=== PATIENT | male | born 1960 | race Caucasian/White ===

== ENCOUNTER 2016-12-28 14:00 | Emergency (ER) | payer MEDICARE, BC ==
--- NOTE | 2016-12-28 14:21 | ERNOTE ---
Abdominal HPI - Narrative Date of Service: 12/28/16 - General Chief Complaint: Abdominal Pain Time Seen by Provider: 12/28/16 14:19 Source: patient, family, RN notes reviewed, telephone clerks supervisor Exam Limitations: other - patient is deaf, daughter signs for him - Immun/Allergies/Home Medications Immunizatons: IMMUNIZATION HX Immunizations Up to Date Yes History of Influenza Vaccine No Hx Pneumococcal Vaccination No Allergies/Adverse Reactions: Allergies No Known Allergies Allergy (Verified 12/28/16 14:07) Home Medications: HOME MEDICATIONS Tizanidine HCl [Zanaflex] 4 mg PO HS 07/16/16 [Last Taken Unknown] ALPRAZolam [Xanax] 0.5 mg PO DAILY 12/28/16 [Last Taken Unknown] Tamsulosin HCl [Flomax] 0.4 mg PO DAILY@1800 12/28/16 [Last Taken Unknown] - History of Present Illness Narrative: 56 y/o male to ED by private vehicle with family for left lower quadrant abdominal pain that began a month ago. He only has pain when he walks. He denies any other symptoms. He has not been taking anything for pain. Prior Abdominal Problems: Present: none Prior Treatment: Absent: recently seen Review of Systems - Review of Systems Constitutional: Absent: fever, fatigue, malaise EYE: Present: no symptoms reported ENT: Present: no symptoms reported Respiratory: Absent: shortness of breath, cough Cardiology: Absent: chest pain, syncope Gastrointestinal/Abdominal: Present: abdominal pain. Absent: nausea, vomiting, diarrhea, constipation, eating less, drinking less Genitourinary: Absent: frequency, dysuria, hematuria Musculoskeletal: Absent: back pain, joint pain Skin: Absent: rash, lesions Neurological: Absent: headache, dizziness/light-headedness Endocrine: Present: no symptoms reported Hematologic/Lymphatic: Present: no symptoms reported Psych: Present: no symptoms reported - Patient's Past Medical History Patient History - Medical: Anxiety, Depression, GERD, Migraines Patient History - Cardiac/Respiratory: No pertinent hx Patient History - Cancer: No Hx of Cancer Patient History - Surgical Procedures: No surgical history Patient History - Other: None - Family History Mother Family History - Medical: Alzheimer's Disease Family History - Cardiac/Respiratory: No pertinent hx Father Family History - Medical: Family History - Cardiac/Respiratory: Coronary Heart Disease, Myocardial Infarction - Social History Living Situations: home Abuse History: No History of abuse Psych History: Hx of Anxiety, Hx of Depression, Current tx/ever been on anti- depressants or anti-anxiety meds Alcohol Use: occasionally Drug Use: none - Immunizations Immunizations Up to Date: Yes Hx Pneumococcal Vaccination: No History of Influenza Vaccine: No Physical Exam - Physical Exam General Appearance: Present: wd/wn, alert, no apparent distress Eye Exam: Normal inspection: bilateral Respiratory: Present: no respiratory distress, normal breath sounds, no accessory muscle use, lungs clear Cardiovascular/Chest: Present: regular rate, rhythm, no murmur, normal peripheral pulses Gastrointestinal/Abdominal: Present: normal bowel sounds, nondistended, soft, tenderness - left lower quad. Absent: mass, hernia Back Exam: Present: normal inspection, no CVA tenderness Neurological Exam: Present: alert, oriented, normal mood/affect Skin Exam: Present: normal color, warm/dry ED Progress - Results and Orders Patient's Lab Results:: I have reviewed the patient's lab results. - Vital Signs Patient's Vital Signs:: I have reviewed the patient's vital signs. Vital Signs: Vital Signs 12/28/16 14:01 Temperature 35.9 C L Pulse Rate 87 Respiratory 12 Rate Blood Pressure 150/73 O2 Sat by Pulse 98 Oximetry - X-Ray X-Ray #1 X-Ray: abdomen Interpretation: Reviewed by me X-ray Comments: Nonobstructive bowel gas pattern with moderate to severe fecal retention - Progress/Reassessment Chief Complaint: Abdominal Pain Progress:: Unchanged Departure - Departure Clinical Impression: Constipation Qualifiers: Constipation type: unspecified constipation type Qualified Code(s): K59.00 - Constipation, unspecified Disposition: Home self-care Condition: Stable Instructions: Constipation, Adult, [id number] Additional Instructions: Drink entire bottle of magnesium citrate and use Fleets enema when you get home Referrals: Reagan Paez MD [Primary Care Provider] -
[2016-12-28 14:22] LABS: Hematocrit 45.4 % (42.0-52.0); Hemoglobin 15.6 gm/dL (13.5-18.0); Mean Cell Volume 83.5 fl (78-100); Mean Corpuscular Hemoglobin 28.7 pg (27-31); Mean Corpuscular Hgb Conc 34.4 g/dl (32-36); Mean Platelet Volume 10.6 fl (6.0-9.5); Neutrophil # 4.3 K/mm3 (1.3-6.0); Neutrophil % 67.5 % (42-75.0); Platelet Count 237 K/mm3 (150-450); Red Blood Count 5.44 M/mm3 (4.7-6.0); Red Cell Distribution Width 13.4 % (11.5-14.0); White Blood Count 6.4 K/mm3 (4.0-10.5)
[2016-12-28] MEDS ORDERED: KETOROLAC TROMETHAMINE 60 MG/2 ML VIAL IM ONE ×2 (14:31→14:37)
[2016-12-28 14:34] LABS: ALT 40 U/L (19-67); AST 17 U/L (0-48); Albumin * 4.1 gm/dl (3.4-5.0); Alkaline Phosphatase * 70 U/L (50-170); Anion Gap 12.4 mmol/L (6.8-13.8); BUN/Creatinine Ratio 13.8 (9.0-21.6); Bilirubin, Total 1.2 mg/dL (0.0-1.1); Blood Urea Nitrogen 13 mg/dL (6-23); Ca. Corrected For Albumin 8.8 mg/dL (8.4-10.2); Calcium * 9.2 mg/dL (7.9-10.9); Carbon Dioxide 28.4 mmol/L (24-32.6); Chloride 105 mmol/L (97-106); Glucose * 137 mg/dL (70-110); Potassium 3.8 mmol/L (3.4-4.6); Sodium 142 mmol/L (132-142); Total Protein 7.4 gm/dL (6.2-8.2)
[2016-12-28 14:49] LABS: Urine Appearance Clear; Urine Bacteria None Seen; Urine Bilirubin Negative (NEGATIVE); Urine Blood Negative /ul (NEGATIVE); Urine Color Yellow; Urine Ketone Negative (NEGATIVE); Urine Nitrite Negative (NEGATIVE); Urine Protein Negative (NEGATIVE); Urine RBC None Seen /hpf (0-5); Urine Specific Gravity 1.005 SP.GR. (1.005-1.030); Urine Urobilinogen Normal (NORMAL); Urine WBC 0-5 /hpf (0-5)
--- OUTSIDE RECORDS SUMMARY | 2016-12-28 14:54 | XMS REPORT | Continuity of Care Document ---
:1960 Author Organization [facility] ([facility]) Address [address] [place] [address] Phone [phone] Care Team Providers Name Role Phone Provider, No-Primary Care Primary Care Provider Unavailable Source Comments This disclosure is being made pursuant to the Care Everywhere program, applicable federal and state laws, and may not contain all informaitonavailable regarding this patient.[facility] ([facility]) Active Allergies and Adverse Reactions No Known Allergies Current Medications Prescription Sig. Disp. Refills Start Date End Date Status ALPRAZolam (XANAX) Take 0.25 mg by Active 0.25 mg tablet mouth 2 times daily as needed. Indications: ANXIETY tamsulosin 0.4 mg Take 1 capsule 90 capsule 3 11/05/2016 Active capsule (0.4 mg total) by mouth at bedtime. Active Problems Problem Noted Date BPH (benign prostatic hypertrophy) with urinary obstruction 05/20/2015 Testicular/scrotal pain 07/23/2012 Most Recent Encounters Date Type Specialty Providers Description 11/05/2016 Office Visit [facility] Dx: Lower urinary tract Burak Pride MD symptoms (LUTS) (Primary Dx) 11/03/2016 Office Visit U[facility] Chief Comp: Patient Reported Reason For Visit Social History Tobacco Use Types Packs/Day Years Used Date Never Smoker Smokeless Tobacco: Never Used Last Filed Vital Signs Vital Sign Reading Time Taken Blood Pressure 148/83 11/05/2016 3:53 PM CYTOTECHNOLOGIST/HISTOTECHNOLOGIST Pulse 77 11/05/2016 3:53 PM CYTOTECHNOLOGIST/HISTOTECHNOLOGIST Temperature 36.9 C (98.4 F) 11/05/2016 3:53 PM CYTOTECHNOLOGIST/HISTOTECHNOLOGIST Respiratory Rate 18 10/29/2015 3:47 PM CYTOTECHNOLOGIST/HISTOTECHNOLOGIST Height 1.626 m (5' 4") 10/29/2015 3:47 PM CYTOTECHNOLOGIST/HISTOTECHNOLOGIST Weight 59.8 kg (131 lb 13.4 oz) 10/29/2015 3:47 PM CYTOTECHNOLOGIST/HISTOTECHNOLOGIST Body Mass Index 22.62 10/29/2015 3:47 PM CYTOTECHNOLOGIST/HISTOTECHNOLOGIST Oxygen Saturation 99% 07/23/2012 3:12 PM CDT Plan of Care Health Maintenance Due Date Last Done Comments HCV Screening 1960 Hepatitis B Vaccine (1 of 3 - Primary Series) 1960 Tdap Vaccine 1972 Lipid Disorder Screening 1979 MMR Vaccine 1979 Td Vaccine 1979 Colonoscopy 2011 Prostate Cancer Screening 02/13/2016 02/12/2015 Influenza Vaccine: Seasonal (#1) 05/26/2016 Results from Last 3 Months UROFLOW, POINT OF CARE (11/05/2016) Component Value Range VOLUME 71 ml FLOW TIME 11 s QMAX 9.6 ml/s QMEAN 6.5 ml/s TQMAX 0.8 s TOTAL TIME 11.7 s POST-VOID RESIDUAL (BVI), POINT OF CARE (11/05/2016) Component Value Range POST-VOID RESIDUAL 70 ml
[2016-12-28] MEDS ORDERED: MAGNESIUM CITRATE 300 ML BTL PO ONE (15:09)
[2016-12-28] MEDS ORDERED: MAGNESIUM CITRATE 300 ML BTL ONE (15:15)
[2016-12-28 16:45] VITALS: BP 144/68
== END 2016-12-28 15:15 | disposition home or self-care (01) ==
LOC: ER 14:00
DX: K59.00 Constipation, unspecified (principal); F41.8 Other specified anxiety disorders; K21.9 Gastro-esophageal reflux disease without esophagitis

== ENCOUNTER 2017-05-20 03:45 | Emergency (ER) | payer MEDICARE, BC ==
[2017-05-20] MEDS ORDERED: MAG HYDROX/ALUMINUM HYD/SIMETH 30 ML UDC PO ONE (04:10)
[2017-05-20] MEDS ORDERED: LIDOCAINE HCL 20 ML UDC PO ONE (04:10)
[2017-05-20] MEDS ORDERED: SUCRALFATE 1 G/10 ML UDC PO ONE (04:10)
--- NOTE | 2017-05-20 04:12 | ERNOTE ---
Chest Pain/Cardiac HPI Chief Complaint: Chest Pain Time Seen by Provider: 05/20/17 04:02 Source: patient Exam Limitations: hard of hearing Immunizations: IMMUNIZATION HX Immunizations Up to Date Yes History of Influenza Vaccine No Hx Pneumococcal Vaccination No Allergies/Adverse Reactions: Allergies No Known Allergies Allergy (Verified 05/20/17 04:20) Home Medications: HOME MEDICATIONS tiZANidine HCL [Zanaflex] 4 mg PO HS 07/16/16 [Last Taken Unknown] ALPRAZolam [Xanax] 0.25 mg PO BID PRN 12/28/16 [Last Taken Unknown] Tamsulosin HCl [Flomax] 0.4 mg PO DAILY@1800 12/28/16 [Last Taken Unknown] Omeprazole 20 mg PO DAILY 05/20/17 [Last Taken Unknown] Narrative: Pt has had epigastric pain tonight, feeling stressed, and having an upset stomach Timing: getting worse Severity/Quality: moderate Chest Pain Radiation: no radiation Modifying Factors - Improves: Present: antacids Review of Systems - Review of Systems Constitutional: Absent: recent illness EYE: Present: no symptoms reported ENT: Present: no symptoms reported Respiratory: Absent: shortness of breath Cardiology: Absent: chest pain Gastrointestinal/Abdominal: Present: See HPI Genitourinary: Present: no symptoms reported Musculoskeletal: Present: neck pain - muscle spasm Skin: Present: no symptoms reported Neurological: Present: headache - on occasion Endocrine: Present: no symptoms reported Hematologic/Lymphatic: Present: no symptoms reported Psych: Present: no symptoms reported - Patient's Past Medical History Patient History - Medical: Anxiety, Depression, GERD, Migraines Patient History - Cardiac/Respiratory: No pertinent hx Patient History - Cancer: No Hx of Cancer Patient History - Surgical Procedures: No surgical history Patient History - Other: None - Family History Mother Family History - Medical: Alzheimer's Disease Family History - Cardiac/Respiratory: No pertinent hx Father Family History - Medical: Family History - Cardiac/Respiratory: Coronary Heart Disease, Myocardial Infarction - Social History Living Situations: home Abuse History: No History of abuse Psych History: Hx of Anxiety, Hx of Depression, Current tx/ever been on anti- depressants or anti-anxiety meds Smoking Status: Never smoker Have you smoked in the past 12 months: No Do you dip or chew tobacco: No Alcohol Use: occasionally Drug Use: none - Immunizations Immunizations Up to Date: Yes Hx Pneumococcal Vaccination: No History of Influenza Vaccine: No Physical Exam - Physical Exam General Appearance: Present: wd/wn, alert, no apparent distress Head Exam: Present: normal inspection, no evidence of injury Eye Exam: Normal inspection: bilateral Ears, Nose, Throat: Present: normal ENT inspection Neck: Present: normal inspection, nontender Respiratory: Present: no respiratory distress, normal breath sounds, lungs clear Cardiovascular/Chest: Present: regular rate, rhythm, no murmur Gastrointestinal/Abdominal: Present: normal bowel sounds, tenderness - mild epigastric. Absent: guarding, rebound Extremity Exam: Present: normal inspection, normal range of motion Neurological Exam: Present: alert, oriented, normal mood/affect Skin Exam: Present: normal color, warm/dry ED Progress - Results and Orders Patient's Lab Results:: I have reviewed the patient's lab results. Results and Orders: Laboratory Tests 05/20/17 05/20/17 04:06 04:06 WBC 6.7 Hgb 14.6 Hct 41.7 L Plt Count 225 Sodium 141 Potassium 3.8 Chloride 104 Carbon Dioxide 25.6 Anion Gap 15.2 H BUN 10 Creatinine 0.94 Est GFR (Non-Af Amer) 89 BUN/Creatinine Ratio 10.6 Random Glucose 112 H Calcium 9.1 Total Bilirubin 1.6 H AST 20 ALT 31 Alkaline Phosphatase 64 Troponin I Less than 0.017 Total Protein 6.8 Albumin 4.0 - Vital Signs Patient's Vital Signs:: I have reviewed the patient's vital signs. Vital Signs: Vital Signs 05/20/17 03:52 Pulse Rate 85 Respiratory 18 Rate Blood Pressure 142/76 O2 Sat by Pulse 96 Oximetry - EKG EKG: NSR - with short CA EKG read: Interp. by me - X-Ray X-Ray #1 X-Ray: chest Interpretation: Interp. by me X-ray Comments: no effusion or infiltrate. X-Ray #2 X-Ray: abdomen Interpretation: Interp. by me X-ray Comments: moderate stool retention in the acending and decending colon. Non-dilated air filled small bowel loops. no evidence of obstruction - Progress/Reassessment Chief Complaint: Chest Pain Progress:: Improved Progress Note-Subjective: 05/20/17 05:25 Pain down to 2/10 Departure - Departure Clinical Impression: Gastritis Qualifiers: Gastritis type: unspecified gastritis Chronicity: acute Gastritis bleeding: presence of bleeding unspecified Qualified Code(s): K29.00 - Acute gastritis without bleeding Constipation Qualifiers: Constipation type: other constipation type Qualified Code(s): K59.09 - Other constipation Disposition: Home self-care Condition: Good Instructions: Gastritis, Adult, [id number] Additional Instructions: Take your omeprazole twice a day for one week. Take a laxative daily for 2-3 days. Continue your current medications as usual
[2017-05-20 04:14] LABS: Hematocrit 41.7 % (42.0-52.0); Hemoglobin 14.6 gm/dL (13.5-18.0); Mean Cell Volume 83.1 fl (78-100); Mean Corpuscular Hemoglobin 29.1 pg (27-31); Mean Platelet Volume 10.6 fl (6.0-9.5); Neutrophil # 3.9 K/mm3 (1.3-6.0); Neutrophil % 58.3 % (42-75.0); Platelet Count 225 K/mm3 (150-450); Red Blood Count 5.02 M/mm3 (4.7-6.0); Red Cell Distribution Width 13.2 % (11.5-14.0); White Blood Count 6.7 K/mm3 (4.0-10.5)
[2017-05-20 04:34] LABS: ALT 31 U/L (19-67); AST 20 U/L (0-48); Alkaline Phosphatase * 64 U/L (50-170); Anion Gap 15.2 mmol/L (6.8-13.8); BUN/Creatinine Ratio 10.6 (9.0-21.6); Bilirubin, Total 1.6 mg/dL (0.0-1.1); Blood Urea Nitrogen 10 mg/dL (6-23); Ca. Corrected For Albumin 8.8 mg/dL (8.4-10.2); Calcium * 9.1 mg/dL (7.9-10.9); Carbon Dioxide 25.6 mmol/L (24-32.6); Chloride 104 mmol/L (97-106); Glucose * 112 mg/dL (70-110); Potassium 3.8 mmol/L (3.4-4.6); Sodium 141 mmol/L (132-142); Total Protein 6.8 gm/dL (6.2-8.2)
[2017-05-20 04:41] LABS: Troponin I Less than 0.017 ng/ml (0.00-0.10)
[2017-05-20] MEDS ORDERED: hydrOXYzine PAMOATE 25 MG CAPSULE PO ONE (05:08)
[2017-05-20] MEDS ORDERED: hydrOXYzine PAMOATE 25 MG CAPSULE ONE (05:13)
[2017-05-20 06:03] VITALS: BP 145/77
== END 2017-05-20 05:59 | disposition home or self-care (01) ==
LOC: ER 03:45
DX: K29.00 Acute gastritis without bleeding (principal); K59.09 Other constipation; F41.9 Anxiety disorder, unspecified; K21.9 Gastro-esophageal reflux disease without esophagitis